=== PATIENT | female | born 1990 | race Caucasian/White ===

== ENCOUNTER → 2018-08-23 | Outpatient (CLI) | payer OTHER ==
[~2018-08-23] MED LIST: IOHEXOL 300 MG/ML 100ML VIAL. INT CAT ONE
[2018-08-23 08:11] LABS: U PREG PATIENT NEGATIVE (NEG)
--- NOTE | 2018-08-23 09:07 | RAD ---
Indication: Infertility. Trying to get for 2 years. TECHNIQUE: Fluoroscopy guided histologic esophagogram with total 4 time of 0.6 minutes and 6 fluoroscopy images. After explaining risks and benefits of procedure, informed consent was obtained. The cervix was catheterized under sterile condition. 8 mL of iodinated contrast was injected. COMPARISON: None FINDINGS: The communication technician image demonstrates no abnormal radiographic findings. Prompt opacification of the endometrial cavity seen. Uterus is oriented towards the right hemipelvis. Bilateral fallopian tubes are seen without focal collection of the contrast. Spillage of contrast is seen into the peritoneal cavity bilaterally. IMPRESSION: Patent fallopian tubes. Electronically signed by: Wil Preston DO (08/23/2018 9:04 AM) [facility]
== END ==
LOC: RAD 08:53
PROVIDERS: ATTEND Obstetrics & Gynecology
DX: N97.9 Female infertility, unspecified (principal)
CPT/HCPCS: 58340; 74740; 81025; Q9967

== ENCOUNTER → 2018-12-12 | Outpatient (CLI) | payer OTHER | END | disposition home or self-care (01) | LOC: SPEC 11:49 | PROVIDERS: ATTEND Obstetrics & Gynecology | DX: Z01.419 Encounter for gynecological examination (general) (routine) without abnormal findings (principal) | CPT/HCPCS: 88175 ==

== ENCOUNTER → 2019-01-12 | Outpatient (CLI) | payer OTHER ==
--- NOTE | 2019-01-16 14:06 | PATHOLOGY ---
[facility] Accession Number: [id number] . 01 Material submitted: . PART A: vulva - SKIN TAG RIGHT VULVA. Modifiers: right PART B: vulva - SKIN TAG LEFT VULVA. Modifiers: left . 01 Clinician provided ICD-10: N90.89 . 01 Clinical history: . Skin tag of vulva . 02 Diagnosis: A. Skin, right side vulva, excisional biopsy: - Verruca completely excised. - There is no evidence of dysplasia or malignancy. . B. Skin, left vulva, biopsies: - Multiple fragments revealing fibroepithelial polyp. - There is no evidence of atypia or malignancy. (SHA/db; 01/16/2019) LBQ 01/16/2019 1048 Local . 02 Electronically signed: . Solis Patel MD, Pathologist NPI- [id number] . 01 Gross description: . A. Received in formalin labeled "Mary Bautista, right side vulva," is a segment of skin measuring 0.5 x 0.4 x 0.1 cm. The surface displays a lesion that is well-circumscribed, raised, irregular in contour, white-richey, flaky, and measures approximately 0.5 x 0.4 x 0.3 cm. The margin is inked and the specimen is bisected and entirely submitted in cassette A1. . B. Received in formalin labeled "Mary Bautista, left vulva," is a segment of richey soft tissue measuring 0.4 x 0.3 x 0.2 cm. The margin is inked and the specimen is bisected and entirely submitted in cassette B1. Also received in the container is a segment of richey soft tissue measuring 0.4 x 0.2 x 0.2 cm. The presumed margin is inked and the specimen is bisected and entirely submitted in cassette B2. (TSD; 01/15/2019) TOB/TOB 01/15/2019 2238 Local . 02 Pathologist provided ICD-10: B07.9, L91.8 . 02 CPT . 121308, 126696 Specimen Comment: A courtesy copy of this report has been sent to [phone], [phone] Specimen Comment: [id number] Specimen Comment: Report sent to and Performed at: 01 [facility] [address] [place] [id number] MD Jey Brock MD Phone: [phone] Performed at: [address] [id number] MD Raul Guo MD Phone: [phone]
== END | disposition home or self-care (01) ==
LOC: SPEC 14:57
PROVIDERS: ATTEND Obstetrics & Gynecology
DX: N90.89 Other specified noninflammatory disorders of vulva and perineum (principal)
CPT/HCPCS: 88304; 88305